=== PATIENT | male | born 1990 | race Caucasian/White ===

== ENCOUNTER 2019-12-05 16:45 | Emergency (ER) | payer BC, SELFPAY ==
[2019-12-05 16:57] VITALS: BP 180/93; PULSE 68; RESP 16; TEMP 36.8; O2SAT 98; BMI 24.3
--- NOTE | 2019-12-05 16:59 | DI.RAD.S_ITS ---
PROCEDURE: XR FINGER LT MIN 2V INDICATIONS: jammed left thumb pain in base of thumb TECHNIQUE: AP hand, 2 views of the first finger(s) acquired. COMPARISON: None. FINDINGS: Bones: No dislocations. There is a lucency at the base of the first proximal phalanx, suspicious for a nondisplaced fracture. No suspicious bony lesions. Soft tissues: No suspicious soft tissue calcifications. IMPRESSION: Possible non-displaced fracture at the base of the first proximal phalanx. Dictated by: Jesusita Cole M.D. on 12/05/2019 at 17:25 Approved by: Jesusita Cole M.D. on 12/05/2019 at 17:30
--- NOTE | 2019-12-05 19:21 | ED.UPPEXIN ---
HPI - Extremity Injury (Upper) <Tiffanie Dueñas PA-C - Last Filed: 12/05/19 21:05> General Chief Complaint: Extremity Injury, Upper Stated Complaint: left thumb pain, says tweaked it 2 wks ago. Time Seen by Provider: 12/05/19 18:46 Source: patient Mode of arrival: Ambulatory Limitations: no limitations History of Present Illness HPI narrative: This 29-year old right-handed male states that he was putting a box into storage when it fell and hit his left thumb about 2 weeks ago. He is in exactly sure of the angle of impact. He states he has had pain since then, slightly better now but still persistent especially with flexing the thumb. He denies weakness or paresthesia. He got a splint from the drugstore, thinks maybe it helps slightly. He has not been taking any medication. 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 He denies any other injury or complaints. He has no chronic medical issues. He came in today at the urging of his mom who was concerned about possible fx. Related Data Previous Rx's Medication Instructions Recorded meloxicam 15 mg PO DAILY #20 tab 12/05/19 Review of Systems <Tiffanie Dueñas PA-C - Last Filed: 12/05/19 21:05> Review of Systems ROS Unobtainable: All systems reviewed & are unremarkable except as noted in HPI and below Patient History <Tiffanie Dueñas PA-C - Last Filed: 12/05/19 21:05> Medical History (Updated 12/05/19 @ 19:46 by Tiffanie Dueñas PA-C) No chronic problems (Chronic) Surgical History (Updated 12/05/19 @ 19:40 by Tiffanie Dueñas PA-C) S/P T&A (status post tonsillectomy and adenoidectomy) (Resolved) Social History Smoking Status: Never smoker Smoking Status: Never smoker Substance Use Type: does not use Exam <Tiffanie Dueñas PA-C - Last Filed: 12/05/19 21:05> Narrative Exam Narrative: GENERAL APPEARANCE: Patient sitting comfortably, in no distress. LUNGS: Clear to auscultation bilaterally. HEART: Rate and rhythm regular without murmur, normal S1 and S2, no S3 or S4. MUSCULOSKELETAL: Left thumb base there is mild effusion and localized tenderness. No tenderness otherwise over the left forearm, wrist, hand and fingers. He has full range of motion aside from slightly reduced thumb opposition secondary to tenderness. Tendon strength appears to be intact in all correa. NEUROVASCULAR: Right hand thumb and fingers are warm and pink with brisk cap refill, sensation is grossly intact Initial Vital Signs Initial Vital Signs: Vital Signs Temperature 98.3 F 12/05/19 16:57 Pulse Rate 68 12/05/19 16:57 Respiratory Rate 16 12/05/19 16:57 Blood Pressure 180/93 H 12/05/19 16:57 Pulse Oximetry 98 12/05/19 16:57 <Anthony Nascimento DO - Last Filed: 12/06/19 00:24> Initial Vital Signs Initial Vital Signs: Vital Signs Temperature 98.3 F 12/05/19 16:57 Pulse Rate 68 12/05/19 16:57 Respiratory Rate 16 12/05/19 16:57 Blood Pressure 180/93 H 12/05/19 16:57 Pulse Oximetry 98 12/05/19 16:57 Course <Tiffanie Dueñas PA-C - Last Filed: 12/05/19 21:05> Course Additional Information: Thumb spica splint placed. Fracture is about 2-week-old and nondisplaced. Advised to wear this 12/06, light duty at work, and follow up with Dr. Kohler or orthopedics. Patient can take meloxicam as needed. Also given information to call [facility] for scheduling with local PCP for routine care and follow-up on blood pressure Orders Ordered: ED Orders 12/05/19 16:59 XR finger LT min 2V Stat Vital Signs Vital signs: Vital Signs - 8 hr 12/05/19 16:57 12/05/19 19:45 Temperature 98.3 F Pulse Rate 68 122 H Respiratory Rate 16 Blood Pressure 180/93 H Blood Pressure [Right Arm] 157/109 H Pulse Oximetry 98 98 <DO Messi Corbett Last Filed: 12/06/19 00:24> Orders Ordered: ED Orders 12/05/19 16:59 XR finger LT min 2V Stat Vital Signs Vital signs: Vital Signs - 8 hr 12/05/19 16:57 12/05/19 19:45 Temperature 98.3 F Pulse Rate 68 122 H Respiratory Rate 16 Blood Pressure 180/93 H Blood Pressure [Right Arm] 157/109 H Pulse Oximetry 98 98 MDM - Extremity Injury (Upper) <Tiffanie Dueñas PA-C - Last Filed: 12/05/19 21:05> Imaging Data hand: Radiologist's Impression: Sin Clifford 29 M [address] [address] XRay Report Signed Patient: Sin CliffordMR#: [id number] : 1990Acct:[id number] Age/Sex: 29 MDate of Service: 12/05/19 Loc: ED Accession Number: [id number] Procedure: XR finger LT min 2V Ordering Provider: Jalyn Diego MD PROCEDURE: XR FINGER LT MIN 2V INDICATIONS: jammed left thumb pain in base of thumb TECHNIQUE: AP hand, 2 views of the first finger(s) acquired. COMPARISON: None. FINDINGS: Bones: No dislocations. There is a lucency at the base of the first proximal phalanx, suspicious for a nondisplaced fracture. No suspicious bony lesions. Soft tissues: No suspicious soft tissue calcifications. IMPRESSION: Possible non-displaced fracture at the base of the first proximal phalanx. Dictated by: Jesusita Cole M.D. on 12/05/2019 at 17:25 Approved by: Jesusita Cole M.D. on 12/05/2019 at 17:30 Discharge Plan Departure Patient Disposition: Home Clinical Impression: Fracture of thumb, left, closed Qualifiers: Encounter type: initial encounter Phalanx: proximal Fracture alignment: nondisplaced Qualified Code(s): S62.515A - Nondisplaced fracture of proximal phalanx of left thumb, initial encounter for closed fracture Discharge Date/Time: 12/05/19 19:54 Instructions: DI for Finger Fracture Activity Restrictions/Additional Instructions: Please wear the splint on your thumb 12/06 to protect it, help with pain, and also prevent the bone from moving (it does not appear out of place now, but your x-ray looks like you could have a fracture at the base of your thumb where you have pain). I have sent in a prescription for a once daily anti-inflammatory/pain reliever for you to take as needed (to [facility] in [place]). Please do not at other NSAIDs, but you can also take Tylenol as needed. You can do light duty at work that you are able to perform while wearing your splint, but avoid lifting or repetitive motion with your thumb. Please call [facility] tomorrow and let them know you were seen in the emergency room with a thumb fracture and we would like you to follow-up there so they can schedule an appointment. I have given you Dr. Kohler's number as he is a hand specialist but you can see 1 of the other providers there as well. You can also call the [facility] [place] at [phone] to get set up with a local primary care provider. Prescriptions: New meloxicam 15 mg tablet 15 mg PO DAILY Qty: 20 RF: 0 Referrals: Artie Kohler MD [Physician] - Stand Alone Forms: Work Release Note
[2019-12-05 19:45] VITALS: BP 157/109; PULSE 122; O2SAT 98
== END 2019-12-05 19:54 | disposition home or self-care (01) ==
PROVIDERS: Emergency Provider Internal Medicine
DX: S62.515A Nondisplaced fracture of proximal phalanx of left thumb, initial encounter for closed fracture (principal); W22.8XXA Striking against or struck by other objects, initial encounter
CPT/HCPCS: 73140; 99283

== ENCOUNTER → 2019-12-26 19:29 | Outpatient (ROUT) | payer BC, SELFPAY ==
[2019-12-26 20:03] LABS: BUN Creatinine Ratio 32.9 (6-22); Blood Urea Nitrogen 23 mg/dL (9-20); Calcium 9.6 mg/dL (8.4-10.2); Carbon Dioxide 22 mmol/L (22-32); Chloride 104 mmol/L (98-107); Estimated Glomerular Filt Rate > 60.0 mL/min (>60); Glucose 88 mg/dL (70-100); Potassium 4.5 mmol/L (3.4-5.1); Sodium 143 mmol/L (137-145)
[2019-12-26 20:04] LABS: HEMOLYSIS 58 (0-50)
[2019-12-26 20:30] LABS: TSH w/ Reflex to FT4 2.18 uIU/mL (0.47-4.68)
== END ==
PROVIDERS: Visit Provider Internal Medicine
DX: I10 Essential (primary) hypertension (principal)
CPT/HCPCS: 80048; 84443